=== PATIENT | female | born 1975 | race Hispanic/Latino ===

== ENCOUNTER 2023-12-25 05:35 | Day surgery (SDC) | payer SELFPAY ==
[2023-12-25] MEDS ORDERED: Misoprostol 200 MCG TAB ONE (06:58)
[2023-12-25] MEDS ORDERED: Tranexamic Acid 1,000 MG/10 ML VIAL ONE (06:58)
[2023-12-25] MEDS ORDERED: Methylergonovine 0.2 MG/ML VIAL ONE (06:58)
[2023-12-25] MEDS ORDERED: Bicitra 30 ML UDCUP ONE (07:12)
[2023-12-25 07:13] LABS: #Basophils 0.1 10x3/uL (0.0-0.2); #Eosinphils 0.4 10x3/uL (0.0-0.5); #Monocytes 0.9 10x3/uL (0.0-1.1); #Neutrophils 6.4 10x3/uL (1.5-8.4); %Eosinophils 3.9 % (0.0-6.0); %Lymphocytes 16.8 % (18.0-47.0); %Monocytes 9.7 % (0.0-10.0); %Neutrophils 68.2 % (40.0-75.0); Hematocrit 33.7 % (34.9-44.5); Hemoglobin 11.6 g/dL (12.0-15.5); Mean Corpuscular HGB CONC 34.4 g/dL (32.0-36.0); Mean Corpuscular Hemoglobin 29.7 pg (27.0-33.0); Mean Corpuscular Volume 86.2 fl (81.6-98.3); Mean Platelet Volume 10.1 fl (7.4-10.4); Platelet Count 317 10x3/uL (150-450); RBC Distribution Width 14.4 % (11.5-14.5); Red Blood Cell (RBC) Count 3.91 10x6/uL (3.90-5.03); White Blood Cell (WBC) Count 9.4 10x3/uL (3.5-10.5)
[2023-12-25] MEDS ORDERED: PROPOFOL 20 ML ONE (07:20)
[2023-12-25] MEDS ORDERED: fentaNYL 50 mcg/mL 1 mL Vial ONE (07:20)
[2023-12-25] MEDS ORDERED: Lidocaine 1% PF 5 ML VIAL ONE (07:20)
[2023-12-25] MEDS ORDERED: Midazolam HCl 2 mg/2 ml Vial ONE (07:20)
[2023-12-25] MEDS ORDERED: Dexamethasone 4 mg/ml Vial ONE (07:20)
[2023-12-25] MEDS ORDERED: Ondansetron PF 4 MG/2 ML Vial ONE (07:20)
[2023-12-25 07:21] LABS: ALT (SGPT) 35 U/L (8-55); AST (SGOT) 28 U/L (5-34); Albumin 3.9 g/dL (3.5-5.0); Alkaline Phosphatase 39 U/L (40-110); Anion Gap 14 mmol/L (10-20); BUN (Urea Nitrogen) 11 mg/dL (7.0-18.7); Bilirubin, Total 0.6 mg/dL (0.2-1.2); Calc. Creatinine Clearance 0 mL/min (70-130); Calcium 8.9 mg/dL (7.8-10.44); Carbon Dioxide 18 mmol/L (22-29); Chloride 109 mmol/L (98-107); Estimated GFR 110; Globulin 2.9 g/dL (2.4-3.5); Glucose 87 mg/dL (70-105); Potassium 3.6 mmol/L (3.5-5.1); Protein, Total 6.8 g/dL (6.0-8.3); Sodium 137 mmol/L (136-145)
[2023-12-25] MEDS ORDERED: Azithromycin 1,000 MG, Admixture Fee 1 EACH in Sodium Chloride 0.9% 500 ML IVPB SCH (07:30)
[2023-12-25 07:41] LABS: Thyroid Stimulating Hormone 0.0497 uIU/mL (0.35-4.94)
[2023-12-25 07:55] VITALS: BMI 23.8
[2023-12-25] MEDS ORDERED: Ketorolac Tromethamine 30 MG (1 mL) VIAL ONE (07:56)
[2023-12-25] MEDS ORDERED: Lactated Ringer's 1,000 ML IV SCH (08:45)
[2023-12-25 09:09] LABS: HCG, Total Quant Greater than 225000.00 mIU/mL (See Ranges)
== END 2023-12-25 10:15 | disposition home or self-care (01) ==
LOC: CSHSDC 05:35
PROVIDERS: ATTEND Obstetrics & Gynecology
PROC: 10A07ZZ Abortion of Products of Conception, Via Natural or Artificial Opening (ICD-10-PCS; principal; 2023-12-25)
DX: O01.9 Hydatidiform mole, unspecified (principal); I10 Essential (primary) hypertension; E78.5 Hyperlipidemia, unspecified; Z79.899 Other long term (current) drug therapy
CPT/HCPCS: 80053; 84443; 84702; 85025; 86850; 86900; 86901; 88305; J0456; J1100; J1885; J2210; J2250; J2405; J2704; J3010; J7030